=== PATIENT | female | born 1965 | race African-American/Black ===

== ENCOUNTER 2017-03-09 12:13 | Emergency (ER) | payer MEDICAID, OTHER ==
[~2017-03-09] VITALS: Ht 167.6 cm; Wt 86.2 kg
[~2017-03-09 12:13] MED LIST: ALLERGY4 MG PO; AMOXICILLIN500 MG ORAL; BACTRIM-DS1 EA PO; BENADRYL50 MG PO; CHERATUSSIN AC118 ML PO; DEBROX15 M1 OT; DIPHENHYDRAMINE25 M1 ORAL; IBUPROFEN600 MG PO; NKM; NORCO 5-325 TA1 EACH PO; PHENAZOPYRIDIN100 MG PO; PREDNISONE20 MG ORAL; PREDNISONE50 MG ORAL; RANITIDINE HCL150 MG ORAL; SOMA350 MG PO; ZANTAC150 MG ORAL; aleve
[2017-03-09 13:07] LABS: BASOPHILS % (AUTO) 0.7 % (0.0-2.0); EOSINOPHILS % (AUTO) 1.3 % (0.0-3.0); LYMPHOCYTES % (AUTO) 10.5 % (20.0-45.0); MEAN CORPUSCULAR HEMOGLOBIN 26.6 PG (27.0-31.0); MEAN CORPUSCULAR HGB CONC 31.6 G/DL (32.0-36.0); MEAN CORPUSCULAR VOLUME 84 FL (80-99); MEAN PLATELET VOLUME 7.9 FL (6.5-10.1); MONOCYTES % (AUTO) 5.3 % (1.0-10.0); NEUTROPHILS % (AUTO) 82.4 % (45.0-75.0); PLATELET COUNT 211 K/UL (150-450); RED BLOOD COUNT 5.44 M/UL (4.20-5.40); RED CELL DISTRIBUTION WIDTH 12.7 % (11.6-14.8); WHITE BLOOD COUNT 9.5 K/UL (4.8-10.8)
[2017-03-09 13:07] LABS: APPEARANCE,URINE SLIGHTLY CLOUDY; KETONES,URINE NEGATIVE (NEGATIVE); LEUKOCYTE ESTERASE ,URINE 3+ (NEGATIVE); NITRITE,URINE POSITIVE (NEGATIVE); PH,URINE 8 (4.5-8.0); PROTEIN,URINE 3+ (NEGATIVE); UROBILINOGEN,URINE NORMAL MG/DL (0.0-1.0)
[2017-03-09 13:16] LABS: PROTHROMBIN TIME 10.3 SEC (9.30-11.50)
[2017-03-09 13:17] LABS: BACTERIA,URINE MODERATE /HPF; RBC,URINE 20-30 /HPF (0 - 2); SQUAMOUS EPITHELIAL CELL,UR FEW /LPF (NONE/OCC); WBC,URINE 30-40 /HPF (0 - 2)
[2017-03-09 13:20] LABS: ANION GAP 7 mmol/L (5-15); CALCIUM 8.5 MG/DL (8.5-10.1); CARBON DIOXIDE 29 MMOL/L (21-32); CHLORIDE 104 MMOL/L (98-107); CREATININE 0.9 MG/DL (0.55-1.30); GLOMERULAR FILTRATION RATE > 60 mL/min (>60); POTASSIUM 3.8 MMOL/L (3.5-5.1); SODIUM 140 MMOL/L (136-145)
[2017-03-09 13:25] LABS: ALANINE AMINOTRANSFERASE 25 U/L (12-78); ALBUMIN/GLOBULIN RATIO 0.8 (1.0-2.7); ASPARTATE AMINO TRANSFERASE 20 U/L (15-37); LIPASE 118 U/L (73-393)
[2017-03-09] MEDS ORDERED: Morphine Sulfate 4mg/ml Inj IVP ONE (13:30)
[2017-03-09] MEDS ORDERED: NITROFURANTOIN100 M2 ORAL (13:32)
[2017-03-09] MEDS ORDERED: IBUPROFEN600 MG ORAL (13:32)
[2017-03-09 13:35] VITALS: BP 149/92
--- NOTE | 2017-03-09 22:40 | Emergency Room Report ---
History of Present Illness General Chief Complaint: Female Urogenital Problems Source: Patient Present Illness [facility] The patient is a 51-year-old female presenting for 3 days of abdominal pain. Described as an 8/10 dull ache to the mid lower abdomen. Does not radiate. No known provoking relieving factors. She also admits to increased urinary frequency but denies dysuria, hematuria, or vaginal discharge. She denies back pain, fever, or chills Allergies: Coded Allergies: CODEINE (Verified Allergy, Unknown, 03/09/17) SHELLFISH DERIVED (Verified Allergy, Unknown, 01/01/15) Patient History Past Medical History: see triage record Pertinent Family History: none Reviewed Nursing Documentation: PMH: Agreed, PSxH: Agreed Nursing Documentation-PMH Past Medical History: No Stated History Hx Gastrointestinal Problems: No - Herniorrhapy in 2012 Review of Systems All Other Systems: negative except mentioned in HPI Physical Exam Vital Signs Date Time Temp Pulse Resp B/P (MAP) Pulse Ox O2 Delivery O2 Flow Rate FiO2 03/09/17 12:33 100.2 93 16 149/92 100 Room Air Sp02 EP Interpretation: reviewed, normal General Appearance: no apparent distress, alert, GCS 15, non-toxic Head: normocephalic, atraumatic Eyes: bilateral eye normal inspection, bilateral eye PERRL ENT: hearing grossly normal, normal pharynx, no angioedema, normal voice Neck: full range of motion, supple/symm/no masses Respiratory: chest non-tender, lungs clear, normal breath sounds, speaking full sentences Gastrointestinal: normal bowel sounds, soft, non-distended, no guarding, no rebound, tenderness - suprapubic Rectal: deferred Genitourinary: normal inspection, no CVA tenderness Musculoskeletal: back normal, gait/station normal, normal range of motion, non- tender Neurologic: alert, oriented x3, responsive, motor strength/tone normal, sensory intact, speech normal Psychiatric: judgement/insight normal, memory normal, mood/affect normal, no suicidal/homicidal ideation Skin: normal color, no rash, warm/dry, well hydrated Medical Decision Making PA Attestation Dr. Willett is my supervising physician. Patient management was discussed with my supervising physician Diagnostic Impression: Primary Impression: UTI ER Course The patient is a 51-year-old female presenting for 3 days of abdominal pain. Differential diagnosis considered but not limited to: UTI, BV, yeast infection, pyelonephritis, PID, PE: Vitals WNL. NAD. Abdomen: Normal appearance. Non distended. No ecchymosis. Normal BS. TTP over suprapubic region only. No McBurney point tenderness. No guarding. No CVA tenderness Blood work is unremarkable. No leukocytosis Urinalysis is consistent with urinary tract infection The patient discharged home with a prescription for Macrobid and pain medication and is given ER precautions. Laboratory Tests Test 03/09/17 12:20 03/09/17 12:55 Urine Color Pale yellow Urine Appearance Slightly cloudy Urine pH 8 (4.5-8.0) Urine Specific [place] 1.010 (1.005-1.035) Urine Protein 3+ (NEGATIVE) H Urine Glucose (UA) Negative (NEGATIVE) Urine Ketones Negative (NEGATIVE) Urine Occult Blood 5+ (NEGATIVE) H Urine Nitrite Positive (NEGATIVE) H Urine Bilirubin Negative (NEGATIVE) Urine Urobilinogen Normal MG/DL (0.0-1.0) Urine Leukocyte Esterase 3+ (NEGATIVE) H Urine RBC 20-30 /HPF (0 - 2) H Urine WBC 30-40 /HPF (0 - 2) H Urine Squamous Epithelial Cells Few /LPF (NONE/OCC) Urine Bacteria Moderate /HPF (NONE) H Urine HCG, Qualitative Negative White Blood Count 9.5 K/UL (4.8-10.8) Red Blood Count 5.44 M/UL (4.20-5.40) H Hemoglobin 14.5 G/DL (12.0-16.0) Hematocrit 45.8 % (37.0-47.0) Mean Corpuscular Volume 84 FL (80-99) Mean Corpuscular Hemoglobin 26.6 PG (27.0-31.0) L Mean Corpuscular Hemoglobin Concent 31.6 G/DL (32.0-36.0) L Red Cell Distribution Width 12.7 % (11.6-14.8) Platelet Count 211 K/UL (150-450) Mean Platelet Volume 7.9 FL (6.5-10.1) Neutrophils (%) (Auto) 82.4 % (45.0-75.0) H Lymphocytes (%) (Auto) 10.5 % (20.0-45.0) L Monocytes (%) (Auto) 5.3 % (1.0-10.0) Eosinophils (%) (Auto) 1.3 % (0.0-3.0) Basophils (%) (Auto) 0.7 % (0.0-2.0) Prothrombin Time 10.3 SEC (9.30-11.50) Prothrombin Time INR 1.0 (0.9-1.1) PTT 28 SEC (23-33) Sodium Level 140 MMOL/L (136-145) Potassium Level 3.8 MMOL/L (3.5-5.1) Chloride Level 104 MMOL/L (98-107) Carbon Dioxide Level 29 MMOL/L (21-32) Anion Gap 7 mmol/L (5-15) Blood Urea Nitrogen 12 mg/dL (7-18) Creatinine 0.9 MG/DL (0.55-1.30) Estimate Glomerular Filtration Rate > 60 mL/min (>60) Glucose Level 100 MG/DL (74-106) Calcium Level 8.5 MG/DL (8.5-10.1) Total Bilirubin 0.5 MG/DL (0.2-1.0) Aspartate Amino Transferase (AST) 20 U/L (15-37) Alanine Aminotransferase (ALT) 25 U/L (12-78) Alkaline Phosphatase 77 U/L (46-116) Total Protein 9.0 G/DL (6.4-8.2) H Albumin 4.1 G/DL (3.4-5.0) Globulin 4.9 g/dL Albumin/Globulin Ratio 0.8 (1.0-2.7) L Lipase 118 U/L (73-393) Lab Results Impression Blood work is unremarkable. No leukocytosis Urinalysis is consistent with urinary tract infection Last Vital Signs Date Time Temp Pulse Resp B/P (MAP) Pulse Ox O2 Delivery O2 Flow Rate FiO2 03/09/17 13:35 100.2 16 149/92 100 Room Air 03/09/17 12:33 93 Status: improved Disposition: HOME, SELF-CARE Condition: Improved Scripts Nitrofurantoin Monohyd/M-Cryst* (MACROBID 100 MG*) 100 Mg Capsule 100 MG ORAL EVERY 12 HOURS, #14 CAP Prov: TERFRANSISCO MCKEON P.A. 03/09/17 Ibuprofen* (MOTRIN*) 600 Mg Tablet 600 MG ORAL Q8H Y for For Pain, #30 TAB 0 Refills Prov: FRANSISCO GEE 03/09/17 Referrals: NON PHYSICIAN (PCP) Patient Instructions: Urinary Tract Infection Additional Instructions: I discussed my findings with the patient. All questions and concerns have been answered. Treatment and medication compliance have been addressed. I advised the patient that they need to follow up with PMD in 3-5 days. Return to ED if symptoms worsen, new symptoms arise, or if needed for any reason. Patient verbalized understanding of discharge instructions. FRANSISCO GEE Mar 09, 2017 22:40
== END 2017-03-09 19:56 | disposition home or self-care (01) ==
LOC: EMR 12:39
DX: N39.0 Urinary tract infection, site not specified (principal); Z88.6 Allergy status to analgesic agent; Z91.013 Allergy to seafood
CPT/HCPCS: 36415; 80053; 81003; 81025; 83690; 85025; 85610; 85730; 87086; 87181; 96361; 96374; 96375; 99284; J2270; J2405